=== PATIENT | female | born 1960 | race African-American/Black ===

== ENCOUNTER 2018-08-31 06:02 | Emergency (ER) | payer MEDICAID ==
[~2018-08-31] VITALS: Ht 152.4 cm; Wt 91.0 kg
[2018-08-31] MEDS ORDERED: DIPHENHYDRAMINE 50MG/ML VIAL IM STA (06:27)
[2018-08-31] MEDS ORDERED: HALOPERIDOL LACTATE 5MG/ML VIAL IM STA (06:27)
[2018-08-31 07:21] LABS: BASOPHILS % 0.3 % (0.0-2.0); EOSINOPHILS % 0.1 % (0.0-5.0); HEMATOCRIT. 46.1 % (36.0-48.0); HEMOGLOBIN. 15.7 g/dL (12.0-16.0); LYMPHOCYTES % 7.4 % (20.0-50.0); MEAN CORPUSCULAR HEMOGLOBIN 30.3 pg (28.0-32.0); MEAN CORPUSCULAR VOLUME 89.2 fL (81.0-99.0); MEAN PLATELET VOLUME 8.3 fl (7.4-10.4); MONOCYTES % 5.6 % (2.0-8.0); NEUTROPHILS % 86.6 % (40.0-76.0); PLATELET 370 x1000/uL (130-400); RED BLOOD CELL COUNT 5.17 mill/uL (4.2-5.4)
[2018-08-31 07:25] LABS: CHLORIDE 102 mEq/L (98-107)
[2018-08-31 07:29] LABS: ETHANOL BLOOD < 10 mg/dL
[2018-08-31 07:49] LABS: CLARITY URINE CLOUDY (CLEAR); COLOR URINE DARK YELLOW (YELLOW); KETONES URINE 1+ (NEGATIVE); LEUKOCYTE ESTERASE URINE TRACE (NEGATIVE); NITRITE URINE NEGATIVE (NEGATIVE); OCCULT BLOOD URINE 1+ (NEGATIVE); PROTEIN URINE 3+ (NEGATIVE); SPECIFIC GRAVITY URINE 1.027 (1.005-1.030)
[2018-08-31 08:17] LABS: METHADONE URINE SCREEN NEGATIVE (NEGATIVE); OPIATES URINE SCREEN NEGATIVE (NEGATIVE)
[2018-08-31 08:18] LABS: *AMPHETAMINES SCREEN URINE NEGATIVE (NEGATIVE); *BARBITURATES SCREEN URINE NEGATIVE (NEGATIVE); *BENZODIAZEPINES SCREEN URINE NEGATIVE (NEGATIVE); *COCAINE SCREEN URINE NEGATIVE (NEGATIVE); CANNABINOID URINE SCREEN PRESUMTIVE POSITIVE (NEGATIVE); PHENCYCLIDINE URINE SCREEN NEGATIVE (NEGATIVE)
[2018-08-31] MEDS ORDERED: CEPHALEXIN 250MG CAPSULE PO ONE (13:00)
[2018-08-31] MEDS ORDERED: HYDROCHLOROTHIAZIDE 25MG TABLET PO ONE (15:00)
[2018-09-01] MEDS ORDERED: POTASSIUM CHLORIDE 20MEQ TABLET SR PO ONE (22:00)
[2018-09-02] MEDS ORDERED: HYDRALAZINE HCL 25MG TABLET PO ONE (11:30)
[2018-09-02 12:51] VITALS: BP 141/88
== END 2018-09-02 13:30 ==
LOC: ER 06:02
DX: F22 Delusional disorders (principal); R45.851 Suicidal ideations; R45.1 Restlessness and agitation; Z78.1 Physical restraint status; I10 Essential (primary) hypertension; E87.6 Hypokalemia
CPT/HCPCS: 36415; 80053; 80305; 80320; 81003; 85025; 96372; 99283; J1200; J1630; Z7610; G0480